=== PATIENT | female | born 1940 | race Two or more races ===

== ENCOUNTER 2021-09-05 11:57 | Inpatient (IN) | payer OTHER ==
[~2021-09-05] VITALS: Ht 167.6 cm; Wt 144.4 kg
[2021-09-05 13:30] LABS: Basophils # (auto) 0 10 ^3/uL (0-0.2); Basophils % (auto) 0.5 % (0.0-2.0); Eosinophils # (auto) 0 10 ^3/uL (0-0.8); Eosinophils % (auto) 0.7 % (0.0-7.0); Hematocrit 44.3 % (36.0-46.0); Hemoglobin 14.3 g/dL (12.2-16.2); Lymphocytes # (auto) 0.3 10 ^3/uL (0.4-5.4); Lymphocytes % (auto) 5.1 % (10.0-50.0); Mean Corpuscular Hemoglobin 30.6 pg (28.0-32.0); Mean Corpuscular Hgb Conc. 32.2 g/dL (32.0-36.0); Monocytes # (auto) 0.3 10 ^3/uL (0-1.3); Monocytes % (auto) 4.9 % (0.0-12.0); Neutrophils # (auto) 5.8 10 ^3/uL (1.6-8.6); Neutrophils % (auto) 88.8 % (37.0-80.0); Nucleated Red Blood Cells % 0.1 %; Red Blood Cells 4.67 10^6/uL (4.0-5.20); Red Cell Distribution Width 13.8 % (11.8-14.3); White Blood Cell 6.5 10^3/uL (4.4-10.8)
[2021-09-05 13:42] LABS: Albumin 3.6 g/dL (3.4-5.0); BUN/Creatinine Ratio 17.7; Calcium 9.2 mg/dL (8.5-10.1); Magnesium 2.1 mg/dL (1.6-2.6); Potassium 4.2 mmol/L (3.5-5.1)
[2021-09-05 13:45] LABS: Bilirubin, Total 0.6 mg/dL (0.2-1.0); Total Protein 8.3 g/dL (6.4-8.2)
[2021-09-05] MEDS ORDERED: ONDANSETRON HCL 4 MG/2 ML VIAL IV ONE (14:00)
[2021-09-05] MEDS ORDERED: MORPHINE SULFATE INJ 2 MG/ml SYRG IV ONE (14:00)
[2021-09-05 14:43] LABS: Urine Bacteria FEW /hpf (None Seen); Urine Blood 2+ /uL (Negative); Urine Hyaline Cast FEW /lpf (0 - 2); Urine Mucus FEW (None Seen); Urine Specific Gravity 1.021 (1.001-1.035); Urine WBC 57 /hpf (0 - 5)
[2021-09-05] MEDS ORDERED: AZITHROMYCIN 500MG/ 250ML 250 ML IV ONE (17:30)
[2021-09-05] MEDS ORDERED: SOD CHL 0.45% 1,000 ML IV SCH (17:30)
[2021-09-05] MEDS ORDERED: NITROGLYCERIN 0.4 MG SL TAB SL PRN (17:30)
[2021-09-05] MEDS ORDERED: cefTRIAXone 1GM/50ML D5W 50 ML IV ONE (17:30)
[2021-09-05] MEDS ORDERED: ALBUTEROL SULF 2.5 MG/0.5ML(0.5%) NEB SOLN NEB PRN (17:30)
[2021-09-05] MEDS ORDERED: MORPHINE SULFATE INJ 2 MG/ml SYRG IV PRN (17:30)
[2021-09-05] MEDS ORDERED: FUROSEMIDE 40 MG/4 ML VIAL IV ONE (18:00)
[2021-09-05] MEDS: hydrALAZINE HCL 20 MG/ML VL IV PRN (19:42)
[2021-09-05 21:49] VITALS: BP 162/78
[2021-09-05 22:00] VITALS: BP 132/66
[2021-09-06 05:00] VITALS: BP 139/67
[2021-09-06] MEDS: HYDROcodone-ACET 5/325MG TAB PO PRN (05:31)
[2021-09-06 05:50] LABS: Basophils # (auto) 0 10 ^3/uL (0-0.2); Basophils % (auto) 0.3 % (0.0-2.0); Eosinophils # (auto) 0 10 ^3/uL (0-0.8); Eosinophils % (auto) 0.2 % (0.0-7.0); Hematocrit 39.8 % (36.0-46.0); Hemoglobin 13.5 g/dL (12.2-16.2); Lymphocytes # (auto) 0.3 10 ^3/uL (0.4-5.4); Mean Corpuscular Hemoglobin 31.5 pg (28.0-32.0); Mean Corpuscular Volume 92.8 fL (80.0-100.0); Monocytes # (auto) 0.5 10 ^3/uL (0-1.3); Monocytes % (auto) 14.8 % (0.0-12.0); Neutrophils # (auto) 2.6 10 ^3/uL (1.6-8.6); Neutrophils % (auto) 75.7 % (37.0-80.0); Nucleated Red Blood Cells % 0.1 %; Red Blood Cells 4.29 10^6/uL (4.0-5.20); Red Cell Distribution Width 13.5 % (11.8-14.3); White Blood Cell 3.4 10^3/uL (4.4-10.8)
[2021-09-06 06:06] LABS: Potassium 3.8 mmol/L (3.5-5.1)
[2021-09-06 06:11] LABS: Albumin 3.3 g/dL (3.4-5.0); Calcium 8.9 mg/dL (8.5-10.1)
[2021-09-06 06:13] LABS: Bilirubin, Total 0.7 mg/dL (0.2-1.0); Total Protein 7.5 g/dL (6.4-8.2)
[2021-09-06 07:31] VITALS: BP 138/67
[2021-09-06 09:00] VITALS: BP 138/67
[2021-09-06] MEDS: ENOXAPARIN SOD 40 MG/0.4 ML SYRINGE SC SCH (09:35)
[2021-09-06] MEDS: cefTRIAXone 1GM/50ML D5W 50 ML IV SCH (09:35)
[2021-09-06] MEDS ORDERED: AZITHROMYCIN 500MG/ 250ML 250 ML IV SCH (10:00)
[2021-09-06 13:00] VITALS: BP 135/68
[2021-09-06 20:00] VITALS: BP 143/66
[2021-09-06 22:00] VITALS: BP 143/66
[2021-09-07 05:00] VITALS: BP 157/67
[2021-09-07] MEDS: hydrALAZINE HCL 20 MG/ML VL IV PRN (06:07)
[2021-09-07] MEDS: HYDROcodone-ACET 5/325MG TAB PO PRN (07:02)
[2021-09-07 09:00] VITALS: BP 138/65
[2021-09-07] MEDS: cefTRIAXone 1GM/50ML D5W 50 ML IV SCH (09:35)
[2021-09-07] MEDS: ENOXAPARIN SOD 40 MG/0.4 ML SYRINGE SC SCH (09:36)
[2021-09-07] MEDS: MEROPENEM 1GM IVPB 100 ML IV SCH ×2 (15:10→21:21)
[2021-09-07 17:00] VITALS: BP 132/63
[2021-09-07 22:00] VITALS: BP 142/55
[2021-09-08] MEDS: HYDROcodone-ACET 5/325MG TAB PO PRN (01:32)
[2021-09-08] MEDS: MEROPENEM 1GM IVPB 100 ML IV SCH ×3 (04:50→21:16)
[2021-09-08 05:00] VITALS: BP 133/65
[2021-09-08 09:00] VITALS: BP 157/53
[2021-09-08] MEDS: ENOXAPARIN SOD 40 MG/0.4 ML SYRINGE SC SCH (10:09)
[2021-09-08 13:00] VITALS: BP 134/46
[2021-09-08] MEDS: hydrALAZINE HCL 20 MG/ML VL IV PRN (16:03)
[2021-09-08 16:41] VITALS: BP 157/53
[2021-09-08 17:00] VITALS: BP 157/65
[2021-09-08 21:59] VITALS: BP 130/63
[2021-09-09] MEDS: MEROPENEM 1GM IVPB 100 ML IV SCH ×2 (04:18→13:00)
[2021-09-09 05:08] VITALS: BP 131/64
[2021-09-09 09:00] VITALS: BP 124/56
[2021-09-09] MEDS: ENOXAPARIN SOD 40 MG/0.4 ML SYRINGE SC SCH (10:05)
[2021-09-09 12:30] VITALS: BP 162/52
== END 2021-09-09 13:40 | DRG 690 ==
LOC: ER 11:57 → EDBD 11:57 → EAST 20:32 → TELE-EAST 09-06 07:37
PROVIDERS: ADMIT Registered Nurse; ATTEND Internal Medicine Geriatric Medicine
DX: N39.0 Urinary tract infection, site not specified (principal); J98.11 Atelectasis; Z68.43 Body mass index [BMI] 50.0-59.9, adult; Z16.12 Extended spectrum beta lactamase (ESBL) resistance; I48.91 Unspecified atrial fibrillation; R53.1 Weakness; B34.9 Viral infection, unspecified; E66.01 Morbid (severe) obesity due to excess calories; E78.5 Hyperlipidemia, unspecified; I25.10 Atherosclerotic heart disease of native coronary artery without angina pectoris; Z20.822 Contact with and (suspected) exposure to COVID-19; I10 Essential (primary) hypertension; I50.9 Heart failure, unspecified; I25.2 Old myocardial infarction; Z88.8 Allergy status to other drugs, medicaments and biological substances
CPT/HCPCS: 36415; 70450; 71045; 80053; 81001; 83735; 83880; 84484; 85025; 87040; 87086; 87088; 87186; 93005; 94640; 96365; 96368; 96375; 97110; 97116; 97163; 97530; G0378; J0696; J2185; J2405

== ENCOUNTER 2022-01-28 13:07 | Emergency (ER) | payer OTHER ==
[~2022-01-28] VITALS: Ht 162.6 cm; Wt 112.0 kg
[2022-01-28] MEDS ORDERED: MORPHINE SULFATE 4 MG/ML SYR/VIAL IV ONE (15:15)
[2022-01-28] MEDS ORDERED: ONDANSETRON HCL 4 MG/2 ML VIAL IV ONE (15:15)
[2022-01-28 15:55] LABS: Basophils # (auto) 0 10 ^3/uL (0-0.2); Basophils % (auto) 0.2 % (0.0-2.0); Eosinophils # (auto) 0 10 ^3/uL (0-0.8); Eosinophils % (auto) 0.1 % (0.0-7.0); Hematocrit 41.4 % (36.0-46.0); Hemoglobin 13.6 g/dL (12.2-16.2); Lymphocytes # (auto) 0.4 10 ^3/uL (0.4-5.4); Lymphocytes % (auto) 7.3 % (10.0-50.0); Mean Corpuscular Hgb Conc. 32.9 g/dL (32.0-36.0); Mean Corpuscular Volume 94.2 fL (80.0-100.0); Monocytes # (auto) 0.3 10 ^3/uL (0-1.3); Monocytes % (auto) 5.5 % (0.0-12.0); Neutrophils # (auto) 4.5 10 ^3/uL (1.6-8.6); Neutrophils % (auto) 86.9 % (37.0-80.0); Red Blood Cells 4.39 10^6/uL (4.0-5.20); Red Cell Distribution Width 14.6 % (11.8-14.3); White Blood Cell 5.2 10^3/uL (4.4-10.8)
[2022-01-28 16:01] LABS: Albumin 3.3 g/dL (3.4-5.0); BUN/Creatinine Ratio 10.7; Calcium 8.9 mg/dL (8.5-10.1); Potassium 4.1 mmol/L (3.5-5.1)
[2022-01-28 16:04] LABS: Bilirubin, Total 0.5 mg/dL (0.2-1.0); Total Protein 7.4 g/dL (6.4-8.2)
[2022-01-28] MEDS ORDERED: TRAM-297 PO (17:58)
[2022-01-28 20:37] VITALS: BP 136/82
== END 2022-01-28 20:38 | disposition home or self-care (01) ==
LOC: EDUNIT# 13:07 → EDBD 13:07 → ER 13:10
DX: M54.16 Radiculopathy, lumbar region (principal); E78.5 Hyperlipidemia, unspecified; I10 Essential (primary) hypertension; Z90.49 Acquired absence of other specified parts of digestive tract; Z90.710 Acquired absence of both cervix and uterus; Z86.73 Personal history of transient ischemic attack (TIA), and cerebral infarction without residual deficits; Z87.891 Personal history of nicotine dependence
CPT/HCPCS: 36415; 72131; 80053; 85025

== ENCOUNTER 2022-07-23 11:30 | Emergency (ER) | payer OTHER ==
[~2022-07-23] VITALS: Ht 162.6 cm; Wt 113.6 kg
[~2022-07-23 11:30] MED LIST: TRAM-297 PO
[2022-07-23 13:24] LABS: Basophils # (auto) 0.1 10 ^3/uL (0-0.2); Basophils % (auto) 0.7 % (0.0-2.0); Eosinophils # (auto) 0.1 10 ^3/uL (0-0.8); Eosinophils % (auto) 0.7 % (0.0-7.0); Hematocrit 44.1 % (36.0-46.0); Hemoglobin 14.5 g/dL (12.2-16.2); Lymphocytes % (auto) 13.9 % (10.0-50.0); Mean Corpuscular Hemoglobin 31.7 pg (28.0-32.0); Mean Corpuscular Hgb Conc. 32.8 g/dL (32.0-36.0); Mean Corpuscular Volume 96.6 fL (80.0-100.0); Monocytes # (auto) 0.7 10 ^3/uL (0-1.3); Monocytes % (auto) 9.7 % (0.0-12.0); Neutrophils # (auto) 5.6 10 ^3/uL (1.6-8.6); Nucleated Red Blood Cells % 0.1 %; Red Blood Cells 4.57 10^6/uL (4.0-5.20); Red Cell Distribution Width 14.5 % (11.8-14.3); White Blood Cell 7.5 10^3/uL (4.4-10.8)
[2022-07-23 13:58] LABS: Albumin 3.4 g/dL (3.4-5.0); Calcium 9.2 mg/dL (8.5-10.1); Magnesium 2.6 mg/dL (1.6-2.6); Potassium 3.9 mmol/L (3.5-5.1)
[2022-07-23 14:02] LABS: Bilirubin, Total 0.5 mg/dL (0.2-1.0); Total Protein 7.9 g/dL (6.4-8.2)
[2022-07-23 16:44] VITALS: BP 145/48
== END 2022-07-23 16:49 | disposition home or self-care (01) ==
LOC: ER 11:30
DX: R94.31 Abnormal electrocardiogram [ECG] [EKG] (principal); G47.00 Insomnia, unspecified; I48.91 Unspecified atrial fibrillation; E78.5 Hyperlipidemia, unspecified; I10 Essential (primary) hypertension; Z86.73 Personal history of transient ischemic attack (TIA), and cerebral infarction without residual deficits; Z90.49 Acquired absence of other specified parts of digestive tract; Z90.710 Acquired absence of both cervix and uterus; Z98.890 Other specified postprocedural states; Z87.891 Personal history of nicotine dependence
CPT/HCPCS: 36415; 71045; 80053; 83605; 83735; 84484; 85025; 87040; 93005

== ENCOUNTER 2022-10-31 12:58 | Inpatient (IN) | payer OTHER ==
[2022-10-31] VITALS (11 sets, daily range): BP systolic 135–145; BP diastolic 57–112; PULSE 55–62; RESP 16–22; TEMP 98; O2SAT 91–99
[~2022-10-31] VITALS: Ht 162.6 cm; Wt 131.0 kg
[2022-10-31] MEDS ORDERED: FUROSEMIDE 40 MG/4 ML VIAL IV ONE (13:15)
[2022-10-31 13:33] LABS: Basophils # (auto) 0 10 ^3/uL (0-0.2); Basophils % (auto) 0.8 % (0.0-2.0); Eosinophils # (auto) 0.1 10 ^3/uL (0-0.8); Hematocrit 40.6 % (36.0-46.0); Hemoglobin 13.2 g/dL (12.2-16.2); Lymphocytes # (auto) 0.9 10 ^3/uL (0.4-5.4); Lymphocytes % (auto) 15.4 % (10.0-50.0); Mean Corpuscular Hemoglobin 31.6 pg (28.0-32.0); Mean Corpuscular Hgb Conc. 32.5 g/dL (32.0-36.0); Monocytes # (auto) 0.6 10 ^3/uL (0-1.3); Monocytes % (auto) 10.6 % (0.0-12.0); Neutrophils # (auto) 4.2 10 ^3/uL (1.6-8.6); Neutrophils % (auto) 71.2 % (37.0-80.0); Nucleated Red Blood Cells % 0.1 %; Red Blood Cells 4.19 10^6/uL (4.0-5.20); Red Cell Distribution Width 15.9 % (11.8-14.3); White Blood Cell 5.9 10^3/uL (4.4-10.8)
[2022-10-31 13:55] LABS: Alanine Aminotransferase 15 U/L (7-40); Alkaline Phosphatase 39 U/L (46-116); Anion Gap 6.3 (5-15); Aspartate Aminotransferase 14 U/L (13-40); BUN/Creatinine Ratio 12.7 (10.0-20.0); Bilirubin, Total 0.8 mg/dL (0.2-1.0); Blood Urea Nitrogen 13 mg/dL (9-23); Calcium 8.7 mg/dL (8.5-10.1); Carbon Dioxide 26.7 mmol/L (20-30); Chloride 109 mmol/L (98-107); Glucose 108 mg/dL (74-106); Magnesium 1.8 mg/dL (1.6-2.6); Potassium 4.1 mmol/L (3.5-5.1); Sodium 142 mmol/L (136-145); Total Protein 6.8 g/dL (5.7-8.2)
[2022-10-31 14:36] LABS: Urine Bacteria NONE SEEN /hpf (None Seen); Urine Blood 2+ /uL (Negative); Urine Clarity Clear (Clear); Urine Color Yellow (Yellow); Urine Protein, UAD TRACE (Negative); Urine Specific Gravity 1.013 (1.001-1.035); Urine Urobilinogen Normal (Negative); Urine WBC 1 /hpf (0 - 5); Urine pH 6.5 (5.0-8.0)
[2022-10-31] MEDS ORDERED: ALBUTEROL SULF 2.5 MG/0.5ML(0.5%) NEB SOLN NEB PRN (15:00)
[2022-10-31] MEDS ORDERED: CLOTRIMAZOLE 1 % CREAM 15GM TOP ONE (15:00)
[2022-10-31] MEDS ORDERED: NITROGLYCERIN 0.4 MG SL TAB SL PRN (15:00)
[2022-10-31] MEDS ORDERED: MORPHINE SULFATE INJ 2 MG/ml SYRG IV PRN (15:00)
[2022-10-31] MEDS ORDERED: KET2TP TOP (15:16)
[2022-10-31] MEDS ORDERED: AMIO200T33 PO (15:16)
[2022-10-31] MEDS ORDERED: ASPI1TAB20 PO (15:16)
[2022-10-31] MEDS ORDERED: APIX5TAB PO (15:16)
[2022-10-31] MEDS ORDERED: ZOLP5TAB5 PO (15:16)
[2022-10-31] MEDS ORDERED: ALBUAER3 IN (15:16)
[2022-10-31] MEDS ORDERED: NITR0.4S29 SL (15:16)
[2022-10-31] MEDS ORDERED: CLON0.1T PO (15:16)
[2022-10-31] MEDS ORDERED: PRAV20TA3 PO (15:16)
[2022-10-31] MEDS ORDERED: CARV6.2551 PO (15:16)
[2022-10-31] MEDS ORDERED: TRAZADONE (15:16)
[2022-10-31] MEDS ORDERED: AML5T PO (15:16)
[2022-10-31 16:01] LABS: LDL Cholesterol 55 mg/dL (< 100); Triglycerides 83 mg/dL (< 150)
[2022-10-31 16:03] LABS: Cholesterol 107 mg/dL (< 200); HDL Cholesterol 41 mg/dL (40-59)
[2022-10-31] MEDS: ALBUTEROL SULF 2.5 MG/0.5ML(0.5%) NEB SOLN NEB SCH ×2 (18:15→22:33)
[2022-10-31] MEDS: IPRATROPIUM BROM 0.5 MG/2.5ML INH SOL NEB SCH ×2 (18:15→22:33)
[2022-10-31] MEDS: CLOTRIMAZOLE 1 % CREAM 15GM TOP SCH (22:43)
[2022-11-01] VITALS (19 sets, daily range): BP systolic 134–157; BP diastolic 51–72; PULSE 55–67; RESP 16–22; TEMP 97.4–98.5; O2SAT 93–100
[2022-11-01] MEDS: ALBUTEROL SULF 2.5 MG/0.5ML(0.5%) NEB SOLN NEB SCH ×6 (02:05→22:36)
[2022-11-01] MEDS: IPRATROPIUM BROM 0.5 MG/2.5ML INH SOL NEB SCH ×6 (02:05→22:34)
[2022-11-01] MEDS: ACETAMINOPHEN 325 MG TAB PO PRN ×2 (05:39→18:16)
[2022-11-01 06:09] LABS: Basophils # (auto) 0 10 ^3/uL (0-0.2); Basophils % (auto) 0.5 % (0.0-2.0); Eosinophils # (auto) 0.1 10 ^3/uL (0-0.8); Eosinophils % (auto) 2.1 % (0.0-7.0); Hematocrit 40.2 % (36.0-46.0); Lymphocytes # (auto) 1.1 10 ^3/uL (0.4-5.4); Lymphocytes % (auto) 16.6 % (10.0-50.0); Mean Corpuscular Hemoglobin 31.4 pg (28.0-32.0); Mean Corpuscular Hgb Conc. 32.4 g/dL (32.0-36.0); Mean Corpuscular Volume 96.9 fL (80.0-100.0); Monocytes # (auto) 0.8 10 ^3/uL (0-1.3); Monocytes % (auto) 12.4 % (0.0-12.0); Neutrophils # (auto) 4.6 10 ^3/uL (1.6-8.6); Neutrophils % (auto) 68.4 % (37.0-80.0); Nucleated Red Blood Cells % 0.1 %; Red Blood Cells 4.15 10^6/uL (4.0-5.20); Red Cell Distribution Width 15.7 % (11.8-14.3); White Blood Cell 6.7 10^3/uL (4.4-10.8)
[2022-11-01 06:22] LABS: Alanine Aminotransferase 11 U/L (7-40); Alkaline Phosphatase 38 U/L (46-116); Anion Gap 8.2 (5-15); Aspartate Aminotransferase 15 U/L (13-40); BUN/Creatinine Ratio 8.8 (10.0-20.0); Bilirubin, Total 0.6 mg/dL (0.2-1.0); Blood Urea Nitrogen 12 mg/dL (9-23); Calcium 9.1 mg/dL (8.7-10.4); Carbon Dioxide 28.8 mmol/L (20-30); Chloride 107 mmol/L (98-107); Glucose 122 mg/dL (74-106); Potassium 3.5 mmol/L (3.5-5.1); Sodium 144 mmol/L (136-145)
[2022-11-01 07:20] LABS: COVID19 ANTIGEN SOFIA FIA NEGATIVE (NEGATIVE)
[2022-11-01] MEDS ORDERED: FUROSEMIDE 20 MG/2 ML VIAL IV SCH (10:00)
[2022-11-01] MEDS ORDERED: ENOXAPARIN SOD 40 MG/0.4 ML SYRINGE SC SCH (10:00)
[2022-11-01] MEDS: AMIODARONE HCL 200 MG TAB PO SCH (10:17)
[2022-11-01] MEDS: APIXABAN 5 MG TAB PO SCH ×2 (10:17→20:54)
[2022-11-01] MEDS: CLOTRIMAZOLE 1 % CREAM 15GM TOP SCH ×2 (10:18→20:55)
[2022-11-01] MEDS: amLODIPine BESYLATE 5 MG TAB PO SCH (10:18)
[2022-11-01] MEDS: hydrALAZINE HCL 20 MG/ML VL IV PRN (14:51)
[2022-11-01] MEDS: HYDROcodone-ACET 5/325MG TAB PO PRN (21:39)
[2022-11-02] VITALS (15 sets, daily range): BP systolic 103–158; BP diastolic 50–67; PULSE 57–75; RESP 16–19; TEMP 97.4–98.1; O2SAT 90–100
[2022-11-02] MEDS: ALBUTEROL SULF 2.5 MG/0.5ML(0.5%) NEB SOLN NEB SCH ×4 (02:17→14:07)
[2022-11-02] MEDS: IPRATROPIUM BROM 0.5 MG/2.5ML INH SOL NEB SCH ×4 (02:17→14:07)
[2022-11-02] MEDS: HYDROcodone-ACET 5/325MG TAB PO PRN ×2 (06:06→12:01)
[2022-11-02] MEDS: hydrALAZINE HCL 20 MG/ML VL IV PRN (06:07)
[2022-11-02 07:02] LABS: Anion Gap 5.1 (5-15); Carbon Dioxide 28.9 mmol/L (20-30); Chloride 108 mmol/L (98-107); Sodium 142 mmol/L (136-145)
[2022-11-02 07:03] LABS: Calcium 9.2 mg/dL (8.5-10.1)
[2022-11-02 07:08] LABS: BUN/Creatinine Ratio 12.5 (10.0-20.0); Blood Urea Nitrogen 14 mg/dL (9-23); Glucose 108 mg/dL (74-106)
[2022-11-02] MEDS ORDERED: FUR20T PO (09:26)
[2022-11-02] MEDS ORDERED: FUROSEMIDE 20 MG TAB PO SCH (10:00)
[2022-11-02] MEDS: AMIODARONE HCL 200 MG TAB PO SCH (10:22)
[2022-11-02] MEDS: amLODIPine BESYLATE 5 MG TAB PO SCH (10:22)
[2022-11-02] MEDS: APIXABAN 5 MG TAB PO SCH (10:22)
[2022-11-02] MEDS: CLOTRIMAZOLE 1 % CREAM 15GM TOP SCH (10:23)
== END 2022-11-02 16:15 | disposition home or self-care (01) | DRG 291 ==
LOC: ER 12:58 → EDBD 12:58 → TELE 15:06 → TELE-CENTR 21:05
PROVIDERS: ADMIT Nurse Practitioner Family; ATTEND Internal Medicine Geriatric Medicine
DX: I11.0 Hypertensive heart disease with heart failure (principal); I50.33 Acute on chronic diastolic (congestive) heart failure; I48.20 Chronic atrial fibrillation, unspecified; N17.9 Acute kidney failure, unspecified; Z68.42 Body mass index [BMI] 45.0-49.9, adult; Z20.822 Contact with and (suspected) exposure to COVID-19; R00.1 Bradycardia, unspecified; E66.9 Obesity, unspecified; E78.5 Hyperlipidemia, unspecified; Z88.8 Allergy status to other drugs, medicaments and biological substances; Z91.041 Radiographic dye allergy status; Z71.3 Dietary counseling and surveillance; I25.2 Old myocardial infarction; Z79.899 Other long term (current) drug therapy; Z86.73 Personal history of transient ischemic attack (TIA), and cerebral infarction without residual deficits; Z87.891 Personal history of nicotine dependence; Z88.1 Allergy status to other antibiotic agents; Z90.710 Acquired absence of both cervix and uterus; Z90.49 Acquired absence of other specified parts of digestive tract; Z79.01 Long term (current) use of anticoagulants
CPT/HCPCS: 36415; 71045; 80048; 80053; 80061; 81001; 83735; 83880; 84443; 84484; 85025; 85379; 87426; 93005; 93306; 93970; 94640; 97110; 97116; 97163; 97530; G0378

== ENCOUNTER 2022-12-05 14:28 | Emergency (ER) | payer OTHER ==
[~2022-12-05] VITALS: Ht 162.6 cm; Wt 113.0 kg
[~2022-12-05 14:28] MED LIST changes: +ALBUAER3 IN; +AMIO200T33 PO; +AML5T PO; +APIX5TAB PO; +ASPI1TAB20 PO; +CARV6.2551 PO; +CLON0.1T PO; +FUR20T PO; +KET2TP TOP; +NITR0.4S29 SL; +PRAV20TA3 PO; +TRAZADONE; +ZOLP5TAB5 PO
[2022-12-05 15:18] VITALS: PULSE 51; RESP 15; TEMP 98.3; O2SAT 99
[2022-12-05 16:03] LABS: Basophils # (auto) 0 10 ^3/uL (0-0.2); Basophils % (auto) 0.6 % (0.0-2.0); Eosinophils # (auto) 0.1 10 ^3/uL (0-0.8); Eosinophils % (auto) 1.2 % (0.0-7.0); Hematocrit 41.1 % (36.0-46.0); Hemoglobin 13.7 g/dL (12.2-16.2); Lymphocytes % (auto) 15.8 % (10.0-50.0); Mean Corpuscular Hemoglobin 32.2 pg (28.0-32.0); Mean Corpuscular Hgb Conc. 33.2 g/dL (32.0-36.0); Mean Corpuscular Volume 96.8 fL (80.0-100.0); Monocytes # (auto) 0.5 10 ^3/uL (0-1.3); Monocytes % (auto) 8.2 % (0.0-12.0); Neutrophils # (auto) 4.9 10 ^3/uL (1.6-8.6); Neutrophils % (auto) 74.2 % (37.0-80.0); Red Blood Cells 4.25 10^6/uL (4.0-5.20); White Blood Cell 6.6 10^3/uL (4.4-10.8)
[2022-12-05 16:20] LABS: Alanine Aminotransferase 13 U/L (7-40); Albumin 4.2 g/dL (3.2-4.8); Alkaline Phosphatase 42 U/L (46-116); Anion Gap 7 (5-15); Aspartate Aminotransferase 13 U/L (13-40); BUN/Creatinine Ratio 17.8 (10.0-20.0); Blood Urea Nitrogen 18 mg/dL (9-23); Calcium 9.1 mg/dL (8.5-10.1); Carbon Dioxide 28 mmol/L (20-30); Chloride 108 mmol/L (98-107); Glucose 98 mg/dL (74-106); INR 1.03 (0.9-1.15); Prothrombin Time 10.8 sec (9.3-11.8); Sodium 143 mmol/L (136-145); Total Protein 7.1 g/dL (5.7-8.2)
[2022-12-05 16:30] LABS: Bilirubin, Total 0.5 mg/dL (0.2-1.0)
[2022-12-05] MEDS ORDERED: PROCHLORPERAZINE EDISYLATE 5 MG/ML 2ML VIAL IV ONE (17:30)
[2022-12-05] MEDS ORDERED: MECL25CH38 PO (18:24)
[2022-12-05] MEDS ORDERED: SODIUM CHLORIDE 0.9% 500 ML IV ONE (18:30)
[2022-12-05 19:01] VITALS: BP 157/63; PULSE 63; RESP 18; O2SAT 98
== END 2022-12-05 20:13 | disposition home or self-care (01) ==
LOC: EDUNIT# 14:28 → EDBD 14:28 → ER 14:28
DX: R42 Dizziness and giddiness (principal); R07.89 Other chest pain; Z79.82 Long term (current) use of aspirin; Z79.899 Other long term (current) drug therapy; Z88.1 Allergy status to other antibiotic agents; Z88.8 Allergy status to other drugs, medicaments and biological substances
CPT/HCPCS: 36415; 70450; 71045; 80053; 84484; 85025; 85610; 85730; 93005; 96374; 99285; J0780; J7040

== ENCOUNTER 2023-08-08 20:17 | Inpatient (IN) | payer OTHER ==
[~2023-08-08] VITALS: Ht 157.5 cm; Wt 124.0 kg
[~2023-08-08 20:17] MED LIST changes: +HYDR-4798 PO; +MECL-90 PO; +MECL25CH38 PO
[2023-08-08 22:34] LABS: Basophils # (auto) 0 10 ^3/uL (0-0.2); Basophils % (auto) 0.3 % (0.0-2.0); Eosinophils # (auto) 0.1 10 ^3/uL (0-0.8); Eosinophils % (auto) 1.4 % (0.0-7.0); Lymphocytes # (auto) 0.6 10 ^3/uL (0.4-5.4); Lymphocytes % (auto) 7.6 % (10.0-50.0); Mean Corpuscular Hemoglobin 31.7 pg (28.0-32.0); Mean Corpuscular Hgb Conc. 32.5 g/dL (32.0-36.0); Mean Corpuscular Volume 97.5 fL (80.0-100.0); Monocytes # (auto) 0.7 10 ^3/uL (0-1.3); Monocytes % (auto) 9.2 % (0.0-12.0); Neutrophils # (auto) 6.1 10 ^3/uL (1.6-8.6); Neutrophils % (auto) 81.5 % (37.0-80.0); Nucleated Red Blood Cells % 0.2 %; Red Cell Distribution Width 15.5 % (11.8-14.3); White Blood Cell 7.5 10^3/uL (4.4-10.8)
[2023-08-08 22:50] LABS: Alanine Aminotransferase 15 U/L (7-40); Albumin 3.8 g/dL (3.2-4.8); Alkaline Phosphatase 39 U/L (46-116); Anion Gap 5 (5-15); Aspartate Aminotransferase 16 U/L (13-40); BUN/Creatinine Ratio 10.7 (10.0-20.0); Bilirubin, Total 0.6 mg/dL (0.2-1.0); Blood Urea Nitrogen 11 mg/dL (9-23); Calcium 9.3 mg/dL (8.7-10.4); Carbon Dioxide 26 mmol/L (20-30); Chloride 109 mmol/L (98-107); Glucose 122 mg/dL (74-106); Potassium 4.1 mmol/L (3.5-5.1); Sodium 140 mmol/L (136-145)
[2023-08-08 23:49] VITALS: PULSE 51; RESP 14; O2SAT 98
[2023-08-09 01:56] LABS: Urine Bacteria FEW /hpf (None Seen); Urine Blood Negative /uL (Negative); Urine Clarity Clear (Clear); Urine Color Yellow (Yellow); Urine Mucus FEW (None Seen); Urine Protein, UAD 1+ (Negative); Urine Specific Gravity 1.033 (1.001-1.035); Urine Urobilinogen 2 mg/dL (Negative); Urine WBC 3 /hpf (0 - 5)
[2023-08-09] MEDS ORDERED: ALBUTEROL SULF 2.5 MG/0.5ML(0.5%) NEB SOLN NEB PRN (03:00)
[2023-08-09] MEDS ORDERED: ONDANSETRON HCL 4 MG/2 ML VIAL IV PRN (03:00)
[2023-08-09 03:24] VITALS: BP 189/63; PULSE 51; RESP 14; TEMP 98.6; O2SAT 98
[2023-08-09 07:30] VITALS: PULSE 45; RESP 13; O2SAT 99
[2023-08-09] MEDS: APIXABAN 5 MG TAB PO SCH (09:18)
[2023-08-09 09:20] VITALS: O2SAT 98
[2023-08-09] MEDS ORDERED: AMIODARONE HCL 200 MG TAB PO SCH (10:00)
[2023-08-09] MEDS: ISOSORBIDE DINITRATE 10 MG TAB PO SCH (11:05)
[2023-08-09] MEDS: FUROSEMIDE 40 MG TAB PO SCH (11:06)
[2023-08-09] MEDS: ENOXAPARIN SOD 120 MG/0.8 ML SYRINGE SC SCH (13:43)
[2023-08-09 19:37] VITALS: O2SAT 96
[2023-08-09] MEDS: PRAVASTATIN SODIUM 20 MG TAB PO SCH (22:30)
[2023-08-10] VITALS (12 sets, daily range): BP systolic 118–155; BP diastolic 50–77; PULSE 53–93; RESP 16–22; TEMP 98.2–99.1; O2SAT 63–100
[2023-08-10 06:31] LABS: Chloride 107 mmol/L (98-107); Potassium 3.9 mmol/L (3.5-5.1); Sodium 142 mmol/L (136-145)
[2023-08-10 06:32] LABS: Anion Gap 5 (5-15); Calcium 9.3 mg/dL (8.7-10.4); Carbon Dioxide 30 mmol/L (20-30)
[2023-08-10 06:37] LABS: BUN/Creatinine Ratio 11.9 (10.0-20.0); Blood Urea Nitrogen 12 mg/dL (9-23); Glucose 110 mg/dL (74-106)
[2023-08-10] MEDS ORDERED: TRAZ-227 PO (14:42)
[2023-08-10] MEDS ORDERED: TRAM-626 PO (14:42)
[2023-08-10] MEDS ORDERED: PRAV20TA3 PO (14:43)
[2023-08-10] MEDS ORDERED: FURO40TA4 PO (14:43)
[2023-08-10] MEDS ORDERED: TIOT1AER INH (14:46)
[2023-08-10] MEDS ORDERED: ALBU108A5 INH (14:46)
[2023-08-10] MEDS ORDERED: NAP500T PO (14:46)
[2023-08-10] MEDS ORDERED: ISOS20TA5 PO (14:46)
[2023-08-10] MEDS ORDERED: LOSA-533 PO (14:46)
[2023-08-11] VITALS (10 sets, daily range): BP systolic 135–158; BP diastolic 42–82; PULSE 49–61; RESP 14–20; TEMP 97.7–98.2; O2SAT 95–100
[2023-08-11] MEDS: amLODIPine BESYLATE 5 MG TAB PO ONE (10:53)
[2023-08-11] MEDS: ACETAMINOPHEN 325 MG TAB PO PRN (23:02)
[2023-08-12] VITALS (10 sets, daily range): BP systolic 119–173; BP diastolic 46–84; PULSE 57–65; RESP 15–17; TEMP 97.5–98.8; O2SAT 91–99
[2023-08-12] MEDS: amLODIPine BESYLATE 5 MG TAB PO SCH (08:49)
[2023-08-12] MEDS: HYDROcodone-ACET 5/325MG TAB PO PRN (11:02)
[2023-08-12] MEDS: hydrALAZINE HCL 20 MG/ML VL IV PRN (13:05)
[2023-08-12] MEDS: LACTULOSE 20Gm/30ML SOLN PO ONE (13:19)
[2023-08-12] MEDS: DOCUSATE SOD 100 MG CAP PO PRN (13:20)
[2023-08-12] MEDS: LOSARTAN POTASSIUM 25 MG TAB PO ONE (18:33)
[2023-08-12] MEDS: APIXABAN 2.5 MG TAB PO SCH (21:32)
[2023-08-12] MEDS: METOPROLOL TARTRATE 25 MG TAB PO SCH (21:33)
[2023-08-13] VITALS (10 sets, daily range): BP systolic 125–167; BP diastolic 51–95; PULSE 56–70; RESP 16–18; TEMP 97.6–98.5; O2SAT 92–98
[2023-08-13] MEDS: NIFEdipine ER 30 MG TAB PO SCH (09:09)
[2023-08-13] MEDS ORDERED: LOSARTAN POTASSIUM 25 MG TAB PO SCH (10:00)
[2023-08-14] VITALS (9 sets, daily range): BP systolic 127–161; BP diastolic 43–98; PULSE 58–69; RESP 16–18; TEMP 97.3–98.7; O2SAT 94–99
[2023-08-15] VITALS (10 sets, daily range): BP systolic 119–151; BP diastolic 37–76; PULSE 56–72; RESP 18–22; TEMP 97.7–98.7; O2SAT 92–98
[2023-08-16] VITALS (9 sets, daily range): BP systolic 114–157; BP diastolic 42–65; PULSE 59–94; RESP 16–20; TEMP 98–98.4; O2SAT 90–97
[2023-08-17] VITALS (7 sets, daily range): BP systolic 94–157; BP diastolic 40–58; PULSE 61–67; RESP 16–18; TEMP 97.5–99; O2SAT 91–95
== END 2023-08-17 17:15 | DRG 309 ==
LOC: EDBD 20:17 → ER 20:17 → OVERFLOW 08-09 03:05 → CENTRAL 08-09 23:49 → TELE-CENTR 08-10 07:28
PROVIDERS: ADMIT Nurse Practitioner; ATTEND Internal Medicine Geriatric Medicine
DX: I48.0 Paroxysmal atrial fibrillation (principal); J96.10 Chronic respiratory failure, unspecified whether with hypoxia or hypercapnia; Z68.43 Body mass index [BMI] 50.0-59.9, adult; S00.83XA Contusion of other part of head, initial encounter; I49.5 Sick sinus syndrome; N18.9 Chronic kidney disease, unspecified; E66.01 Morbid (severe) obesity due to excess calories; E78.2 Mixed hyperlipidemia; J44.9 Chronic obstructive pulmonary disease, unspecified; Z96.653 Presence of artificial knee joint, bilateral; T44.7X5A Adverse effect of beta-adrenoreceptor antagonists, initial encounter; W06.XXXA Fall from bed, initial encounter; E66.9 Obesity, unspecified; I12.9 Hypertensive chronic kidney disease with stage 1 through stage 4 chronic kidney disease, or unspecified chronic kidney disease; X58.XXXA Exposure to other specified factors, initial encounter; Z79.01 Long term (current) use of anticoagulants; Z88.8 Allergy status to other drugs, medicaments and biological substances; Z88.1 Allergy status to other antibiotic agents; Z91.041 Radiographic dye allergy status; Z79.891 Long term (current) use of opiate analgesic; Z79.899 Other long term (current) drug therapy; Z79.82 Long term (current) use of aspirin; Z90.49 Acquired absence of other specified parts of digestive tract; Z90.710 Acquired absence of both cervix and uterus; Z87.891 Personal history of nicotine dependence; Z86.73 Personal history of transient ischemic attack (TIA), and cerebral infarction without residual deficits; Z82.3 Family history of stroke; Z82.49 Family history of ischemic heart disease and other diseases of the circulatory system; R00.1 Bradycardia, unspecified; I25.2 Old myocardial infarction; Z99.81 Dependence on supplemental oxygen; Y93.89 Activity, other specified; Y99.8 Other external cause status; Y92.003 Bedroom of unspecified non-institutional (private) residence as the place of occurrence of the external cause
CPT/HCPCS: 36415; 71045; 80048; 80053; 80061; 81001; 82962; 83036; 83605; 83735; 83880; 84443; 84484; 85025; 87040; 93005; 93306; 93886; 96372; 97110; 97116; 97163; 97530; G0378